=== PATIENT | male | born 1990 | race Caucasian/White ===

== ENCOUNTER → 2020-12-01 | Outpatient (CLI) | payer BC ==
[~2020-12-01] MED LIST: ACHD5005 PO; ALBU17AE23 IH; CLON2TAB16; HYDR-2890; LEVO500T69 PO
== END ==
LOC: LABNPT 09:48
PROVIDERS: ATTEND Anesthesiology
DX: U07.1 COVID-19 (principal)
CPT/HCPCS: 87636

== ENCOUNTER 2020-12-07 21:37 | Emergency (ER) | payer BC ==
[~2020-12-07] VITALS: Ht 183 cm; Wt 103.0 kg
[2020-12-07] MEDS ORDERED: RT-ALBUTEROL INHALER HFA (VENTOLIN HFA) 18 GM IH SCH (22:15)
[2020-12-07 22:34] LABS: BASOPHILS % (AUTO) 0 % (0-10); EOSINOPHILS % (AUTO) 0 % (0-10); HEMATOCRIT 45 % (40-54); HEMOGLOBIN 14.9 g/dL (13.3-17.7); LYMPHOCYTES % (AUTO) 22 % (12-44); MEAN CORPUSCULAR HEMOGLOBIN 28 pg (25-34); MEAN CORPUSCULAR HGB CONC 33 g/dL (32-36); MEAN CORPUSCULAR VOLUME 84 fL (80-99); MEAN PLATELET VOLUME 12.2 fL (9.0-12.2); MONOCYTES # (AUTO) 0.3 10^3/uL (0.0-1.0); MONOCYTES % (AUTO) 7 % (0-12); NEUTROPHILS # (AUTO) 3.1 10^3/uL (1.8-7.8); NEUTROPHILS % (AUTO) 71 % (42-75); PLATELET COUNT 157 10^3/uL (130-400); WHITE BLOOD COUNT 4.4 10^3/uL (4.3-11.0)
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
[2020-12-07 22:55] LABS: ALBUMIN 4.2 GM/DL (3.2-4.5); CHLORIDE 101 MMOL/L (98-107); POTASSIUM 3.9 MMOL/L (3.6-5.0); SODIUM 139 MMOL/L (135-145)
[2020-12-07 22:56] LABS: CALCIUM 8.8 MG/DL (8.5-10.1)
[2020-12-07 22:58] LABS: GLUCOSE 132 MG/DL (70-105)
[2020-12-07] MEDS ORDERED: DOXY100T2 PO (22:58)
[2020-12-07] MEDS ORDERED: DEXA6TAB6 PO (22:58)
[2020-12-07 22:59] LABS: BILIRUBIN,TOTAL 0.7 MG/DL (0.1-1.0); CARBON DIOXIDE 26 MMOL/L (21-32); ERYTHROCYTE SEDIMENTATION RATE 17 MM/HR (0-15)
[2020-12-07] MEDS ORDERED: DOXYCYCLINE 100 MG (VIBRAMYCIN) TABLET PO SCH (23:00)
[2020-12-07] MEDS ORDERED: AZITHROMYCIN 250 MG TAB (ZITHROMAX) PO ONE (23:00)
[2020-12-07 23:01] LABS: ALKALINE PHOSPHATASE 79 U/L (40-136); CREATININE SERUM 1.05 MG/DL (0.60-1.30); GFR ESTIMATED > 60
[2020-12-07 23:02] LABS: BUN/CREATININE RATIO 12
[2020-12-07 23:04] LABS: ALANINE AMINOTRANSFERASE 36 U/L (0-55)
[2020-12-07 23:05] LABS: MAGNESIUM 2.2 MG/DL (1.6-2.4)
[2020-12-07] MEDS ORDERED: IOHEXOL 350 MG/ML 100 ML (OMNIPAQUE 350) VIAL IV ONE (23:30)
[2020-12-07] MEDS ORDERED: CATHETER FLUSH 10 ML SYR IV PRN (23:30)
[2020-12-07] MEDS ORDERED: NS 100 ML (IVPB) BAG IV ONE (23:30)
[2020-12-07] MEDS ORDERED: HOLD METFORMIN - RECEIVED CONTRAST 20 ML VIAL IV SCH (23:30)
[2020-12-08 00:28] VITALS: BP 109/73
--- NOTE | 2020-12-08 05:56 | Diagnostic Imaging Report ---
INDICATION: COVID +. TECHNIQUE: Single view chest 10:42 PM. CORRELATION STUDY: None FINDINGS: Given technique, heart size and mediastinum are unremarkable. Patchy bilateral pulmonary opacities are present particularly at the right lung base. IMPRESSION: 1. Patchy bilateral pulmonary opacities favoring multilobe pneumonia, right greater than left. Dictated by: Dictated on workstation # [id number]
--- NOTE | 2020-12-08 07:05 | Diagnostic Imaging Report ---
PROCEDURE: CT angiography of the chest with contrast. TECHNIQUE: Multiple contiguous axial images were obtained through the chest after uneventful bolus administration of intravenous contrast. 3D reconstructed CTA MIP acquisitions were also performed. Auto Exposure Controls were utilized during the CT exam to meet ALARA standards for radiation dose reduction. INDICATION: Covid positive, shortness of air, cough and congestion. CORRELATION: None FINDINGS: Heart size normal and without disproportionate right heart strain. Thoracic aorta unremarkable. Poor opacification of the pulmonary arteries for assessment of pulmonary emboli. Large central pulmonary embolus is not suggested. No significant pathologically enlarged mediastinal lymph nodes. Patchy bilateral groundglass infiltrates are present. More pronounced involving the superior aspect of the right lower lobe. No significant pleural effusion. The visualized portions of the upper abdomen are unremarkable. The visualized osseous structures demonstrate no acute findings. IMPRESSION: 1. Poor opacification of pulmonary arteries for assessment of pulmonary emboli. 2. Patchy groundglass infiltrates, right greater than left, consistent with multilobe pneumonia. This would include potential for Covid pneumonia. Initial report was provided by [facility]. Dictated by: Dictated on workstation # [id number]
== END 2020-12-08 00:28 | disposition home or self-care (01) ==
LOC: EDUNIT# 21:37 → ER 21:39
DX: U07.1 COVID-19 (principal); J12.82 Pneumonia due to coronavirus disease 2019; Z87.820 Personal history of traumatic brain injury
CPT/HCPCS: 36415; 71045; 71275; 80053; 83605; 83735; 83880; 84145; 85025; 85379; 85652; 86141; 87040; 93041